=== PATIENT | female | born 1955 | race Caucasian/White ===

== ENCOUNTER 2021-12-29 05:16 | Day surgery (SDC) | payer MEDICARE, OTHER ==
[~2021-12-29] VITALS: Ht 170 cm; Wt 73.0 kg
[~2021-12-29 05:16] MED LIST: ASPIRIN EC81 MG PO; BUPROPION HCL200 MG PO; CALCIUM + VITA1 EAC2 PO; COREG 6.25MG6.25 MG PO; CRESTOR20 MG PO; DALIRESP500 MCG PO; OMEPRAZOLE40 MG PO; OXYCONTIN20 MG PO; PERCOCET 5-3251 EACH PO; SYMBICORT 80-10.2 GM INH; SYNJARDY 12.5-1 EACH PO; SYNJARDY XR 121 EACH PO; TOPROL XL25 MG PO; TRELEGY ELLIPT1 EACH INH; VOLTAREN **OUT75 MG PO; ZOLOFT100 MG PO
--- NOTE | 2021-12-29 11:28 | NUR ---
PT HAD A RRTSR THIS DATE PT. WILL DC HOME WITH NO NEEDS.
[2021-12-30 03:20] LABS: BASOPHIL 0.2 % (0-2); EOSINOPHIL 0 % (0-7); HCT 26.8 % (37.0-47.0); HGB 7.7 g/dl (12.5-16.0); LYMPHOCYTE 13.3 % (15-48); MCH 20.1 pg (25.0-31.0); MCHC 28.7 g/dL (32.0-36.0); MCV 69.8 fL (78.0-100.0); MPV 9.9 fL (6.0-9.5); NRBC 0; PLT 154 K/uL (150-400); RBC 3.84 M/uL (4.20-5.40); RDW 19.9 % (11.5-14.0); WBC 10.1 K/uL (4.0-10.5)
[2021-12-30 03:42] LABS: BUN/CREAT RATIO (CALC) 26.9 RATIO; CREATININE 0.78 mg/dL (0.51-0.95); POTASSIUM 4.3 mmol/L (3.5-5.1)
[2021-12-30] MEDS ORDERED: FEOSOL325 MG PO (09:43)
== END 2021-12-30 11:00 | disposition home or self-care (01) ==
LOC: FAS 05:16 → EDSTATUS 07:00 → FOFB 08:34 → FAS 10:00
PROVIDERS: Orthopaedic Surgery
DX: M12.811 Other specific arthropathies, not elsewhere classified, right shoulder (principal); S46.211A Strain of muscle, fascia and tendon of other parts of biceps, right arm, initial encounter; R09.02 Hypoxemia; I95.81 Postprocedural hypotension; E11.9 Type 2 diabetes mellitus without complications; J44.9 Chronic obstructive pulmonary disease, unspecified; Z99.81 Dependence on supplemental oxygen; X58.XXXA Exposure to other specified factors, initial encounter; Y92.9 Unspecified place or not applicable
CPT/HCPCS: 36415; 73020; 80048; 85025; 86850; 86900; 86901; 94010; 97162; 97166; 97530-GP; 97535; C1713; C1776; J0171; J0697; J1100; J1885; J2250; J2370; J2405; J2704; J2795; J3010; J7120